=== PATIENT | female | born 1995 | race African-American/Black ===

== ENCOUNTER 2023-05-07 13:58 | Emergency (ER) | payer SELFPAY ==
[2023-05-07] MEDS ORDERED: Ondansetron PF 4 MG/2 ML Vial ONE (14:56)
[2023-05-07 14:57] LABS: BHCG - Serum Negative (NEGATIVE); Pregs Control Background? CLEAR/WHITE (CLR/WHITE); Pregs Control Bar Appear? YES (CONTROL BAR)
[2023-05-07 14:59] LABS: #Monocytes 1.1 10x3/uL (0.0-1.1); #Neutrophils 7.4 10x3/uL (1.5-8.4); %Basophils 0.2 % (0.0-2.0); %Eosinophils 0.2 % (0.0-6.0); %Lymphocytes 12.6 % (18.0-47.0); %Monocytes 10.8 % (0.0-10.0); %Neutrophils 75.9 % (40.0-75.0); Hematocrit 39.7 % (34.9-44.5); Mean Corpuscular HGB CONC 32.7 g/dL (32.0-36.0); Mean Corpuscular Hemoglobin 28.8 pg (27.0-33.0); Mean Corpuscular Volume 87.8 fl (81.6-98.3); Mean Platelet Volume 9.4 fl (7.4-10.4); Platelet Count 252 10x3/uL (150-450); RBC Distribution Width 11.7 % (11.5-14.5); Red Blood Cell (RBC) Count 4.52 10x6/uL (3.90-5.03); White Blood Cell (WBC) Count 9.7 10x3/uL (3.5-10.5)
[2023-05-07 15:00] LABS: ALT (SGPT) 11 U/L (8-55); AST (SGOT) 16 U/L (5-34); Alkaline Phosphatase 40 U/L (40-110); Anion Gap 11 mmol/L (10-20); BUN (Urea Nitrogen) 10 mg/dL (7.0-18.7); Calc. Creatinine Clearance 0 mL/min (70-130); Calcium 9.1 mg/dL (7.8-10.44); Carbon Dioxide 23 mmol/L (22-29); Chloride 106 mmol/L (98-107); Estimated GFR 91; Globulin 3.2 g/dL (2.4-3.5); Glucose 104 mg/dL (70-105); Potassium 3.4 mmol/L (3.5-5.1); Protein, Total 7.2 g/dL (6.0-8.3); Sodium 137 mmol/L (136-145)
== END 2023-05-07 17:30 | disposition home or self-care (01) ==
LOC: CSHERS 13:58
DX: R11.2 Nausea with vomiting, unspecified (principal); R19.7 Diarrhea, unspecified; J02.9 Acute pharyngitis, unspecified; F17.210 Nicotine dependence, cigarettes, uncomplicated
CPT/HCPCS: 80053; 84703; 85025; 96361; 96374; J2405

== ENCOUNTER 2025-09-18 07:47 | Emergency (ER) | payer SELFPAY ==
[2025-09-18 08:22] LABS: Glucose, Urine (Dipstick) Normal (Negative); Leukocyte Negative (Negative); Protein, Urine (Dipstick) 30 mg/dl (Neg-Trace); Specific Gravity, Urine 1.020 (1.005-1.030)
[2025-09-18 08:36] LABS: CAUTI Indications for Culture Pelvic or flank pain; RBC/HPF 0-3 HPF (0-3); WBC/HPF 0-3 HPF (0-3)
[2025-09-18 08:37] LABS: Bacteria/HPF Rare-Few HPF (None Seen); Mucous/LPF 3+ LPF (<2+); Urine Culture Reflex No No
[2025-09-18 08:41] LABS: #Basophils Less than 0.03 10x3/uL (0.0-0.2); #Eosinophils Less than 0.03 10x3/uL (0.0-0.5); #Monocytes 0.46 10x3/uL (0.0-1.1); #Neutrophils 3.84 10x3/uL (1.5-8.4); %Basophils 0.0 % (0.0-2.0); %Eosinophils 0.4 % (0.0-6.0); %Lymphocytes 14.9 % (18.0-47.0); %Monocytes 9.0 % (0.0-10.0); %Neutrophils 75.5 % (40.0-75.0); Hematocrit 43.9 % (34.9-44.5); Hemoglobin 14.2 g/dL (12.0-15.5); Mean Corpuscular Hemoglobin 29.3 pg (27.0-33.0); Mean Corpuscular Volume 90.5 fL (81.6-98.3); Platelet Count 304 10x3/uL (150-450); Red Blood Cell (RBC) Count 4.85 10x6/uL (3.90-5.03); White Blood Cell (WBC) Count 5.09 10x3/uL (3.5-10.5)
[2025-09-18] MEDS ORDERED: Acetaminophen 500 MG TAB ONE (08:46)
[2025-09-18] MEDS ORDERED: cefTRIAXone (ROCEPHIN) 1 GM VIAL ONE (08:46)
[2025-09-18] MEDS ORDERED: Naproxen 500 MG TAB ONE (08:46)
[2025-09-18 08:59] LABS: ALT (SGPT) 13 U/L (Less than 34); AST (SGOT) 17 U/L (11-34); Albumin 4.2 g/dL (3.1-4.5); Alkaline Phosphatase 59 U/L (40-110); Anion Gap 15 mmol/L (10-20); BUN (Urea Nitrogen) 12 mg/dL (7.0-18.7); Bilirubin, Total 1.2 mg/dL (0.3-1.2); Calc. Creatinine Clearance 0 mL/min (70-130); Calcium 9.8 mg/dL (7.8-10.44); Carbon Dioxide 23 mmol/L (22-29); Chloride 103 mmol/L (98-107); Globulin 3.9 g/dL (2.4-3.5); Glucose 110 mg/dL (70-105); Potassium 4.0 mmol/L (3.5-5.1); Sodium 137 mmol/L (136-145)
[2025-09-18 10:22] LABS: Pregnancy Test - Urine (BHCG) Negative (Negative); Pregu Control Background? CLEAR/WHITE (CLR/WHITE); Pregu Control Bar Appear? YES (CONTROL BAR)
== END 2025-09-18 10:21 | disposition home or self-care (01) ==
LOC: CSHERS 07:47
DX: N76.0 Acute vaginitis (principal); B96.89 Other specified bacterial agents as the cause of diseases classified elsewhere; R11.2 Nausea with vomiting, unspecified; N73.9 Female pelvic inflammatory disease, unspecified; F17.210 Nicotine dependence, cigarettes, uncomplicated
CPT/HCPCS: 80053; 81001; 81025; 85025; 87480; 87510; 87660; 96372; 99284; J0696; Q0162